=== PATIENT | female | born 1990 | race Caucasian/White ===

== ENCOUNTER 2019-09-28 00:56 | Emergency (ER) | payer OTHER ==
[~2019-09-28] VITALS: Ht 177.8 cm; Wt 77.1 kg
== END 2019-09-28 07:35 | disposition home or self-care (01) ==
LOC: ER 00:56
DX: R10.2 Pelvic and perineal pain (principal)

== ENCOUNTER 2020-05-29 15:49 | Emergency (ER) | payer OTHER ==
[~2020-05-29] VITALS: Ht 177.8 cm; Wt 73.9 kg
== END 2020-05-29 20:06 | disposition home or self-care (01) ==
LOC: ER 15:49
DX: N83.292 Other ovarian cyst, left side (principal); R10.2 Pelvic and perineal pain; R30.0 Dysuria

== ENCOUNTER 2020-09-22 22:19 | Emergency (ER) | payer OTHER ==
[~2020-09-22] VITALS: Ht 177.8 cm; Wt 75.7 kg
== END 2020-09-23 02:36 ==
LOC: ER 22:19
DX: J11.1 Influenza due to unidentified influenza virus with other respiratory manifestations (principal); Z20.822 Contact with and (suspected) exposure to COVID-19

== ENCOUNTER 2022-01-08 21:40 | Emergency (ER) | payer OTHER ==
[~2022-01-08] VITALS: Ht 180.3 cm; Wt 82.6 kg
[2022-01-09] MEDS ORDERED: ACETAMINOPHEN650 M2 PO (05:19)
== END 2022-01-09 05:32 | disposition home or self-care (01) ==
LOC: ER 21:40
DX: N93.9 Abnormal uterine and vaginal bleeding, unspecified (principal); R10.2 Pelvic and perineal pain; R31.9 Hematuria, unspecified; R53.81 Other malaise; R42 Dizziness and giddiness; D69.6 Thrombocytopenia, unspecified; Z88.6 Allergy status to analgesic agent; Z88.8 Allergy status to other drugs, medicaments and biological substances

== ENCOUNTER 2022-09-26 20:39 | Emergency (ER) | payer OTHER ==
[~2022-09-26] VITALS: Ht 180.3 cm; Wt 79.4 kg
[~2022-09-26 20:39] MED LIST: ACETAMINOPHEN650 M2; ACETAMINOPHEN650 M2 PO
== END 2022-09-26 23:20 | disposition home or self-care (01) ==
LOC: ER 20:39 → EMR PED 20:43 → ER 20:43
DX: M54.2 Cervicalgia (principal); Z88.6 Allergy status to analgesic agent; Z88.8 Allergy status to other drugs, medicaments and biological substances

== ENCOUNTER 2023-02-21 18:28 | Emergency (ER) | payer OTHER ==
[~2023-02-21] VITALS: Ht 162.6 cm; Wt 68.0 kg
== END 2023-02-21 22:44 | disposition home or self-care (01) ==
LOC: ER 18:28
DX: B34.8 Other viral infections of unspecified site (principal); Z20.822 Contact with and (suspected) exposure to COVID-19

== ENCOUNTER 2023-03-26 15:17 | Emergency (ER) | payer OTHER ==
[~2023-03-26] VITALS: Ht 180.3 cm; Wt 78.9 kg
== END 2023-03-26 20:23 | disposition home or self-care (01) ==
LOC: ER 15:17 → EMR PED 15:20 → ER 20:23
DX: N93.8 Other specified abnormal uterine and vaginal bleeding (principal); Z88.6 Allergy status to analgesic agent; Z88.8 Allergy status to other drugs, medicaments and biological substances

== ENCOUNTER 2023-08-12 18:55 | Emergency (ER) | payer OTHER ==
[~2023-08-12] VITALS: Ht 177.8 cm; Wt 83.9 kg
[2023-08-12 21:30] LABS: HEMATOCRIT 37.2 % (36.0-45.00); HEMOGLOBIN 12.5 g/dL (12.0-15.00); MEAN CELL VOLUME 91.8 fL (80.00-100.00); MEAN CORPUSCULAR HEMOGLOBIN 30.9 pg (27.00-32.0); MEAN CORPUSCULAR HGB CONC 33.6 g/dl (32.0-36.0); PLATELET COUNT 156 K/uL (150-450); RED BLOOD COUNT 4.05 M/uL (4.00-6.00); RED CELL DISTRIBUTION WIDTH 12.6 % (11.5-14.5)
[2023-08-12 21:57] LABS: CALCIUM 8.8 mg/dL (8.5-10.1); CREATININE SERUM 0.81 mg/dL (0.55-1.02); GFR 82.47; POTASSIUM 3.75 mEq/L (3.5-5.1)
[2023-08-12 22:00] LABS: URINE APPEARANCE Cloudy; URINE BILIRRUBIN Negative (NEGATIVE); URINE BLOOD Negative; URINE COLOR Yellow; URINE GLUCOSE Negative (NEGATIVE); URINE LEUKOCYTE Large; URINE NITRATE Negative; URINE PROTEIN Negative (NEGATIVE)
[2023-08-12 22:04] LABS: URINE EPITHELIAL CELLS 42.9 uL (0.0-38.8); URINE RBC 7.9 uL (0.0-20.8); URINE WBC 127.3 uL (0.0-23.2)
== END 2023-08-12 22:48 | disposition home or self-care (01) ==
LOC: ER 18:56
PROVIDERS: General Practice
DX: R30.0 Dysuria (principal); Z88.6 Allergy status to analgesic agent; Z88.8 Allergy status to other drugs, medicaments and biological substances

== ENCOUNTER 2024-03-01 23:10 | Emergency (ER) | payer OTHER ==
[~2024-03-01] VITALS: Ht 180.3 cm; Wt 78.9 kg
[2024-03-02] MEDS ORDERED: HYOSCYAMINE SULFATE 0.125 MG TAB.SUBL SL STA (00:06)
[2024-03-02] MEDS ORDERED: METOCLOPRAMIDE HCL 5 MG/ML VIAL IM STA (00:06)
== END 2024-03-02 01:17 | disposition home or self-care (01) ==
LOC: ER 23:11
DX: K59.01 Slow transit constipation (principal); Z88.6 Allergy status to analgesic agent; Z88.8 Allergy status to other drugs, medicaments and biological substances

== ENCOUNTER 2024-09-11 08:34 | Emergency (ER) | payer OTHER ==
[~2024-09-11] VITALS: Ht 154.9 cm; Wt 69.9 kg
[2024-09-11 10:26] LABS: PH,URINE 5.5 (5.0-8.0); URINE APPEARANCE Cloudy; URINE BILIRRUBIN Small (NEGATIVE); URINE BLOOD Large; URINE COLOR Orange; URINE GLUCOSE Negative (NEGATIVE); URINE KETONE Negative (NEGATIVE); URINE LEUKOCYTE Small; URINE NITRATE Negative
[2024-09-11 10:33] LABS: URINE EPITHELIAL CELLS 170.9 uL (0.0-38.8); URINE RBC 157.7 uL (0.0-20.8); URINE WBC 28.8 uL (0.0-23.2)
[2024-09-11 11:13] LABS: HEMATOCRIT 35.1 % (36.0-45.00); HEMOGLOBIN 11.7 g/dL (12.0-15.00); MEAN CELL VOLUME 91.7 fL (80.00-100.00); MEAN CORPUSCULAR HEMOGLOBIN 30.5 pg (27.00-32.0); MEAN CORPUSCULAR HGB CONC 33.2 g/dl (32.0-36.0); RED BLOOD COUNT 3.82 M/uL (4.00-6.00); RED CELL DISTRIBUTION WIDTH 11.7 % (11.5-14.5)
[2024-09-11 11:17] LABS: PLATELET COUNT 137 K/uL (150-450)
[2024-09-11 11:18] LABS: URINE BACTERIA > 9821.5 uL (0.0-1933); URINE PROTEIN 100 (NEGATIVE)
[2024-09-11 11:19] LABS: CALCIUM 8.8 mg/dL (8.5-10.1); CREATININE SERUM 0.72 mg/dL (0.55-1.02); GFR 93.87; POTASSIUM 4.12 mEq/L (3.5-5.1)
== END 2024-09-11 14:02 | disposition home or self-care (01) ==
LOC: ER 08:36
PROVIDERS: General Practice
DX: N93.9 Abnormal uterine and vaginal bleeding, unspecified (principal); Z88.6 Allergy status to analgesic agent; Z88.8 Allergy status to other drugs, medicaments and biological substances

== ENCOUNTER 2025-06-26 19:12 | Emergency (ER) | payer OTHER ==
[~2025-06-26] VITALS: Ht 180.3 cm; Wt 78.9 kg
[2025-06-26 20:37] VITALS: BP 106/71; O2SAT 99
[2025-06-26] MEDS ORDERED: ACETAMINOPHEN 500 MG GEL..CAP PO ONE (21:15)
[2025-06-26] MEDS ORDERED: ORPHENADRINE CITRATE 30 MG/ML AMPUL IM ONE (21:15)
[2025-06-26] MEDS ORDERED: 0.9 % SODIUM CHLORIDE 1,000 ML IV SCH (21:15)
[2025-06-26 23:37] LABS: INR 0.95
[2025-06-26 23:44] LABS: ALT/SGPT 38 U/L (12-78); AST/SGOT 55 U/L (15-37); BILIRUBIN TOTAL 0.42 mg/dL (0.3-1.2); BUN CREA RATIO 17 (7.0-25.0); CREATININE SERUM 0.96 mg/dL (0.55-1.02); GFR 66.93; GLOBULINA 3.1 G/DL (2.4-3.5); GLUCOSE FASTING 103 mg/dL (65-100); OSMOLALITY SERUM 285 MOSM/KG (275-295)
[2025-06-26 23:50] LABS: HCG QUANTITATIVE < 1 mUI/mL (1-3)
[2025-06-26 23:52] LABS: BASO % 0.2 % (0.1-1.2); EOS # 0.06 (0.04-0.54); EOS % 1.4 % (0.7-7.0); LYMPH # 2.37 (1.18-3.74); LYMPH % 54.6 % (19.3-53.1); MEAN PLATELET VOLUME 12.00 fl (9.4-12.4); MONO # 0.21 (0.24-0.82); MONO % 4.8 % (4.7-12.5); NEUT # 1.69 (1.56-6.13); NEUT % 39.0 % (34.0-71.1); RED CELL DISTRIBUTION WIDTH 11.3 % (11.6-14.4)
[2025-06-27] MEDS ORDERED: NORFLEX100MG PO (00:24)
[2025-06-27] MEDS ORDERED: PEPCID AC20 MG PO (00:24)
[2025-06-27] MEDS ORDERED: 8HR ARTHRITIS650 M1 PO (00:24)
== END 2025-06-27 00:42 | disposition home or self-care (01) ==
LOC: ER 19:13
PROVIDERS: General Practice
DX: R10.31 Right lower quadrant pain (principal); R10.21 Pelvic and perineal pain right side; Z88.8 Allergy status to other drugs, medicaments and biological substances; Z88.6 Allergy status to analgesic agent